=== PATIENT | male | born 1990 | race Caucasian/White ===

== ENCOUNTER → 2017-05-08 | Outpatient (CLI) | payer MEDICARE ==
[~2017-05-08] MED LIST: ADDERALL15 MG PO; DOXYCYCLINE100 M3 PO; PREDNISONE10 MG PO; SEROQUEL200 MG PO; STRATTERA40 M1 PO
[2017-05-08 09:40] LABS: BASO % 0.3 % (0.0-1.0); EOS # 0.1 10*3/uL (0.0-0.4); EOS % 1.2 % (1.0-4.0); HEMATOCRIT 44.1 % (42.0-52.0); HEMOGLOBIN 15.7 g/dl (14.0-18.0); LYMPH # 1.9 10*3/uL (1.3-4.4); LYMPH % 32.4 % (27.0-41.0); MEAN CELL VOLUME 87.2 fl (80.0-94.0); MEAN CORPUSCULAR HGB CONC 35.6 g/dl (33.0-37.0); MEAN PLATELET VOLUME 9.5 fl (9.6-12.3); MONO # 0.5 10*3/uL (0.1-1.0); MONO % 8.9 % (3.0-9.0); NEUT # 3.3 10*3/uL (2.3-7.9); NEUT % 56.5 % (47.0-73.0); PLATELET COUNT AUTOMATED 206 10*3/uL (130-400); RED BLOOD COUNT 5.06 10*6/uL (4.50-5.90); RED CELL DISTRI WIDTH 11.7 % (0-14.5); WHITE BLOOD COUNT 5.8 10*3/uL (4.8-10.8)
[2017-05-08 09:50] LABS: ALBUMIN 3.9 gm/dl (3.1-4.5); BUN 19 mg/dl (7-24); CHLORIDE 105 mmol/L (98-107); CHOLESTEROL 148 mg/dL (<200); CREATININE 0.87 mg/dL (0.70-1.30); POTASSIUM 3.9 mmol/L (3.5-5.1); SGOT/AST 18 IU/L (3-35); SGPT/ALT 24 U/L (12-78); SODIUM 140 mmol/L (136-145)
[2017-05-08 10:01] LABS: ALKALINE PHOSPHATASE 72 U/L (45-117); HDL CHOLESTEROL 42 mg/dl (40-60); LDL CHOLESTEROL 64 mg/dL (9-159); TOTAL PROTEIN 7.6 gm/dL (6.4-8.2); TRIGLYCERIDES 210 mg/dl (<150); VLDL CHOLESTEROL 42 mg/dL (6-40)
== END | disposition home or self-care (01) ==
LOC: LAB 08:42
DX: F31.31 Bipolar disorder, current episode depressed, mild (principal); F41.9 Anxiety disorder, unspecified; E78.5 Hyperlipidemia, unspecified

== ENCOUNTER → 2019-04-01 | Outpatient (CLI) | payer MEDICARE ==
[2019-04-01 14:03] LABS: HEMATOCRIT 47.7 % (42.0-52.0); HEMOGLOBIN 16.8 g/dl (14.0-18.0); MEAN CELL VOLUME 90.5 fl (80.0-94.0); MEAN CORPUSCULAR HGB 31.9 pg (27.0-31.0); MEAN CORPUSCULAR HGB CONC 35.2 g/dl (33.0-37.0); MEAN PLATELET VOLUME 9.8 fl (9.6-12.3); RED BLOOD COUNT 5.27 10*6/uL (4.50-5.90); RED CELL DISTRI WIDTH 11.3 % (0-14.5); WHITE BLOOD COUNT 4.5 10*3/uL (4.8-10.8)
[2019-04-01 14:34] LABS: ALBUMIN 4.1 gm/dl (3.1-4.5); ALKALINE PHOSPHATASE 58 U/L (45-117); BUN 16 mg/dl (7-24); CHLORIDE 106 mmol/L (98-107); CHOLESTEROL 174 mg/dL (<200); CREATININE 0.82 mg/dL (0.70-1.30); HDL CHOLESTEROL 39 mg/dl (40-60); LDL CHOLESTEROL 109 mg/dL (9-159); POTASSIUM 3.7 mmol/L (3.5-5.1); SGOT/AST 11 IU/L (3-35); SGPT/ALT 19 U/L (12-78); SODIUM 139 mmol/L (136-145); TOTAL PROTEIN 7.7 gm/dL (6.4-8.2); TRIGLYCERIDES 129 mg/dl (<150); VLDL CHOLESTEROL 26 mg/dL (6-40)
== END | disposition home or self-care (01) ==
LOC: LAB 13:12
PROVIDERS: Family Medicine
DX: E78.00 Pure hypercholesterolemia, unspecified (principal); E55.9 Vitamin D deficiency, unspecified; R53.83 Other fatigue

== ENCOUNTER → 2021-07-09 | Outpatient (CLI) | payer MEDICARE | END | disposition home or self-care (01) | LOC: RAD 12:57 | PROVIDERS: ATTEND Family Medicine | DX: R06.02 Shortness of breath (principal) ==

== ENCOUNTER 2023-03-27 10:15 | Emergency (ER) | payer MEDICARE ==
[~2023-03-27] VITALS: Wt 78.0 kg
== END 2023-03-27 11:09 | disposition home or self-care (01) ==
LOC: ED 10:15
DX: T15.02XA Foreign body in cornea, left eye, initial encounter (principal); F90.9 Attention-deficit hyperactivity disorder, unspecified type; F31.9 Bipolar disorder, unspecified

== ENCOUNTER 2023-12-01 10:38 | Emergency (ER) | payer MEDICARE ==
[~2023-12-01] VITALS: Ht 182.8 cm; Wt 76.2 kg
[2023-12-01] MEDS ORDERED: Acetaminophen/Hydrocodone 5 MG/325 MG TABLET PO ONE ×2 (16:55→18:50)
[2023-12-01] MEDS ORDERED: NAPROSYN500 MG PO (18:49)
[2023-12-01] MEDS ORDERED: methylPREDNISolone sod succ 125 MG VIAL IM ONE (18:55)
== END 2023-12-01 19:39 | disposition home or self-care (01) ==
LOC: ED 10:38
DX: S39.012A Strain of muscle, fascia and tendon of lower back, initial encounter (principal); M54.42 Lumbago with sciatica, left side; R25.3 Fasciculation; Z79.2 Long term (current) use of antibiotics; Z79.899 Other long term (current) drug therapy

== ENCOUNTER → 2024-02-09 | Outpatient (CLI) | payer MEDICARE ==
[~2024-02-09] MED LIST changes: +NAPROSYN500 MG PO
== END | disposition home or self-care (01) ==
LOC: RAD 11:07
PROVIDERS: ATTEND Chiropractor Orthopedic
DX: M99.03 Segmental and somatic dysfunction of lumbar region (principal)

== ENCOUNTER → 2024-10-13 | Outpatient (CLI) | payer MEDICARE, OTHER | END | disposition home or self-care (01) | LOC: US 02:58 | PROVIDERS: ATTEND Nurse Practitioner Family | DX: N50.3 Cyst of epididymis (principal); N50.89 Other specified disorders of the male genital organs ==

== ENCOUNTER → 2024-10-14 | Outpatient (CLI) | payer MEDICARE, OTHER | END | disposition home or self-care (01) | LOC: RAD 11:00 | PROVIDERS: ATTEND Chiropractor Orthopedic | DX: S29.012A Strain of muscle and tendon of back wall of thorax, initial encounter (principal); M99.02 Segmental and somatic dysfunction of thoracic region; X58.XXXA Exposure to other specified factors, initial encounter; Y93.89 Activity, other specified; Y92.89 Other specified places as the place of occurrence of the external cause; Y99.8 Other external cause status ==